=== PATIENT | female | born 1980 | race Two or more races ===

== ENCOUNTER 2019-02-21 10:20 | Emergency (ER) | payer MEDICAID, OTHER ==
[~2019-02-21] VITALS: Ht 154.9 cm; Wt 58.1 kg
[2019-02-21 10:37] VITALS: BP 92/58
[2019-02-21] MEDS ORDERED: cefTRIAXone SOD 1,000 MG VL IM ONE (11:30)
[2019-02-21 12:01] LABS: Urine Bacteria FEW /hpf (None Seen); Urine Blood 1+ /uL (Negative); Urine Mucus MODERATE (None Seen); Urine Specific Gravity 1.024 (1.001-1.035); Urine WBC 1343 /hpf (0 - 5); Urine WBC Clumps PRESENT /hpf (None Seen)
== END 2019-02-21 12:05 | disposition home or self-care (01) ==
LOC: ER 10:25
DX: N39.0 Urinary tract infection, site not specified (principal)
CPT/HCPCS: 81001; 96372; 99283; J0696; 81002

== ENCOUNTER 2019-08-09 08:48 | Emergency (ER) | payer MEDICAID ==
[~2019-08-09] VITALS: Ht 154.9 cm; Wt 58.1 kg
[2019-08-09 08:50] VITALS: BP 108/63
[2019-08-09] MEDS ORDERED: PHENAZOPYRIDINE HCL 100 MG TAB PO ONE (09:30)
[2019-08-09] MEDS ORDERED: PRIMIDONE 50 MG TAB PO ONE (09:30)
== END 2019-08-09 09:40 | disposition home or self-care (01) ==
LOC: ER 08:48
DX: N39.0 Urinary tract infection, site not specified (principal)
CPT/HCPCS: 81002; 81025

== ENCOUNTER 2022-01-13 19:46 | Emergency (ER) | payer MEDICAID ==
[~2022-01-13] VITALS: Ht 154.9 cm; Wt 64.0 kg
[2022-01-13 20:41] LABS: Urine Amorphous Crystal FEW /hpf (None Seen); Urine Bacteria FEW /hpf (None Seen); Urine Blood Negative /uL (Negative); Urine Specific Gravity 1.019 (1.001-1.035); Urine WBC 1 /hpf (0 - 5)
[2022-01-13] MEDS ORDERED: predniSONE 20 MG TAB PO ONE (22:15)
[2022-01-13] MEDS ORDERED: ALPRAZolam 0.5 MG TAB PO ONE (22:15)
[2022-01-13] MEDS ORDERED: ALPR0.5T7 PO (22:49)
[2022-01-13] MEDS ORDERED: PRED20TA2 PO (22:49)
[2022-01-13] MEDS ORDERED: [UNRECOGNIZED DRUG - CODE] RIGHTEYE (22:49)
[2022-01-13 23:20] VITALS: BP 132/71
== END 2022-01-13 23:31 | disposition home or self-care (01) ==
LOC: ER 19:46
DX: G51.0 Bell's palsy (principal); F41.0 Panic disorder [episodic paroxysmal anxiety]; Z32.02 Encounter for pregnancy test, result negative
CPT/HCPCS: 70450; 81001; 81025